=== PATIENT | female | born 1935 | race Hispanic/Latino ===

== ENCOUNTER 2018-07-18 15:25 | Observation (INO) | payer MEDICARE ==
[2018-07-18 15:26] VITALS: BMI 23.2
--- NOTE | 2018-07-18 16:03 | ED PDOC ---
HPI:STROKE - Time Time: 16:00 - Historian Historian: Family - Chief Complaint Chief Complaint: Mental status change, Confusion - Onset Date: 07/17/18 Time: 10:00 Onset: Days (1) - Timing Timing: Currently Symptomatic - Location Location: Mental Status - Radiation Radiation: None - Severity of pain Maximum severity:: Mild Severity Current: Mild - Exacerbated by Exacerbated by:: Nothing - Relieved by Relieved by:: Nothing - TPA Positive for Contraindication: No Reason tPA is not being Administered: Sxs 24 hrs - Notes: Notes:: Confusion, unstaedy gait since yesterday after waking up. Subsequently fell and hit back of head. No LOC. No focal weakness NIHSS Stroke Scale - How Severe is the Stroke Level of Consciousness: 0=Alert LOC to Questions: 0=Both comments correct LOC to commands: 0=Obeys both correctly Best Gaze: 0=Normal Visual: 0=No visual loss Facial: 0=Normal Motor Arm - Left: 0=No drift Motor Arm - Right: 0=No drift Motor Leg - Left: 0=No drift Motor Leg - Right: 0=No drift Limb Ataxia: 0=Absent Sensory: 0=Normal Best Language: 0=No aphasia Dysarthia: 0=Normal articulation Extinction & Inattention (Neglect): 0=Normal, no object Score: 0 rTPA Inclusion/Exclusion - Refusal of Treatment Patient Refused Treatment: No - Inclusion Criteria for Altepase Patient is 18 years or Older: Yes The Clinical Diagnosis of Ischemic Stroke That is Causing a Potentially Disabling Neurological Deficit: Yes Time of Onset is Well Established to be Less Than 270 Minute Before Treatment Would Begin: No Risk/Benefit Discussed With Patient/Family Member Present: No Past Medical History Vital Signs: Last Vital Signs Temp 99.9 F H 07/18/18 15:34 Pulse 65 07/18/18 15:34 Resp 16 07/18/18 15:34 BP 125/59 L 07/18/18 15:34 Pulse Ox 96 07/18/18 15:34 - Medical History PMH: CAD, HTN, Hypercholesterolemia, Hypothyroidism, Osteoporosis - Surgical History Surgical History: CABG - Family History Family History: States: Unknown Family Hx - Home Medications Home Medications: Ambulatory Orders Medication Instructions Recorded Enalapril Maleate [Enalapril] 10 mg PO DAILY 05/20/15 amLODIPine [Norvasc] 5 mg PO DAILY 05/20/15 Atorvastatin [Lipitor] 20 mg PO HS 01/29/18 Levothyroxine [Synthroid] 25 mcg PO DAILY 01/29/18 Sitagliptin Phos/Metformin HCl 1 tab PO BID 01/29/18 [Janumet 50-1,000 mg Tablet] Valsartan/Hydrochlorothiazide 1 tab PO DAILY 01/29/18 [Valsartan-Hctz 320-25 mg Tab] Aspirin [Aspirin] 325 mg PO DAILY 07/18/18 Ezetimibe [Zetia] 10 mg PO HS 07/18/18 Metoprolol Tartrate [Lopressor] 50 mg PO Q12 07/18/18 - Allergies Allergies/Adverse Reactions: Allergies Allergy/AdvReac Type Severity Reaction Status Date / Time No Known Allergies Allergy Verified 07/18/18 15:34 Review of Systems ROS Statement: Except As Marked, All Systems Reviewed And Found Negative Neurological: Positive for: Confusion, Other (Unstaedy gait) Physical Exam - Reviewed Nursing Documentation Reviewed: Yes Vital Signs Reviewed: Yes - Physical Exam Appears: Positive for: Non-toxic, No Acute Distress Head Exam: Positive for: ATRAUMATIC, NORMAL INSPECTION, NORMOCEPHALIC Skin: Positive for: Normal Color, Warm, DRY Eye Exam: Positive for: EOMI, Normal appearance, PERRL ENT: Positive for: Normal ENT Inspection Neck: Positive for: Normal, Painless ROM Cardiovascular/Chest: Positive for: Regular Rate, Rhythm, Murmur Respiratory: Positive for: CNT, Normal Breath Sounds Gastrointestinal/Abdominal: Positive for: Normal Exam, Soft Back: Positive for: Normal Inspection Extremity: Positive for: Normal ROM Neurologic/Psych: Positive for: Alert, Oriented (x2). Negative for: Motor/ Sensory Deficits - Laboratory Results Result Diagrams: 07/18/18 16:20 07/18/18 16:20 - ECG O2 Sat by Pulse Oximetry: 96 Disposition - Clinical Impression Clinical Impression: TIA (transient ischemic attack) - Patient ED Disposition Is Patient to be Admitted: Yes - Disposition Disposition Time: 17:44 Condition: FAIR Forms: [facility] (Moroccan) - Pt Status Changed To: Hospital Disposition Of: Observation - POA Present On Arrival: None
[2018-07-18 16:31] LABS: BASO % 0.2 % (0.0-2.0); EOS # 0.7 K/uL (0.0-0.7); HEMOGLOBIN 12.9 g/dL (12.0-16.0); LYMPH # 3.2 K/uL (1.0-4.3); LYMPH % 30.7 % (20.0-40.0); MEAN CELL VOLUME 93.5 fl (81.0-99.0); MEAN CORPUSCULAR HEMOGLOBIN 31.3 pg (27.0-31.0); MEAN CORPUSCULAR HGB CONC 33.5 g/dL (33.0-37.0); MEAN PLATELET VOLUME 9.2 fl (7.2-11.7); MONO # 0.9 K/uL (0.0-0.8); MONO % 8.3 % (0.0-10.0); NEUT # 5.6 K/uL (1.8-7.0); NEUT % 53.8 % (50.0-75.0); RBC 4.11 Mil/uL (3.80-5.20); RED CELL DISTRIBUTION WIDTH 13.5 % (11.5-14.5); WHITE BLOOD COUNT 10.4 K/uL (4.8-10.8)
--- NOTE | 2018-07-18 16:40 | CT ---
Date of service: 07/18/2018 PROCEDURE: CT HEAD WITHOUT CONTRAST. HISTORY: r/o bleed COMPARISON: 10/13/2013. TECHNIQUE: Axial computed tomography images were obtained through the head/brain without intravenous contrast. Radiation dose: Total exam DLP = 659.35 mGy-cm. This CT exam was performed using one or more of the following dose reduction techniques: Automated exposure control, adjustment of the mA and/or kV according to patient size, and/or use of iterative reconstruction technique. FINDINGS: HEMORRHAGE: No intracranial hemorrhage. 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 There are moderate chronic microangiopathic changes. There is no mass, mass effect or abnormal extra-axial fluid collection.There are coarse atherosclerotic calcifications in the cavernous carotid arteries. VENTRICLES: There is moderate age-related global parenchymal volume loss and proportionate enlargement of the ventricles and cortical sulci. CALVARIUM: There is no calvarial fracture or extracranial soft tissue swelling. PARANASAL SINUSES: There is abnormal soft tissue in the right sphenoid chamber and left maxillary sinus. The remaining included paranasal sinuses are predominantly clear. MASTOID AIR CELLS: Unremarkable as visualized. No inflammatory changes. OTHER FINDINGS: None. IMPRESSION: No acute intracranial abnormality. Moderate chronic microangiopathic changes and moderate age-related global parenchymal volume loss. 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
[2018-07-18 16:42] LABS: ALB/GLOB RATIO 1.2 (1.0-2.1); ALBUMIN 4.1 g/dL (3.5-5.0); ALT/SGPT 26 U/L (9-52); AST/SGOT 26 U/L (14-36); BLOOD UREA NITROGEN 17 mg/dl (7-17); CALCIUM 9.2 mg/dL (8.4-10.2); GFR NON-AFRICAN AMERICAN > 60
--- NOTE | 2018-07-18 17:09 | CP.PCM.HP ---
Addendum entered and electronically signed by Samantha Augustine MD 07/18/18 20:17: NIDDM -cont home meds -low correction dose -hypoglycemia protocol Original Note: <Samantha Augustine - Last Filed: 07/18/18 19:23> History of Present Illness - History of Present Illness History of Present Illness: CC: changes in mental status HPI: 83 YO Female with PMHx of NIDDM, HTN, HLD, CAD (s/p CABG) and baseline dementia was brought in to [facility] ED by daughter for changes in mental status and new onset weakness in RUE. Daughter present by bedside states that since yesterday AM, her mother was not at her usual self, was taking off her clothes, acting unlike herself and was having balance issues. Additionally, daughter noticed that pt was weak in her RUE, was unable to hold the phone or take her pills. Baseline RLE weakness due to chronic pain. Denies cough, dyspnea, chest pain, n/v/d/c, dysuria, hematuria. PMD: Dr. Gill PMHx: NIDDM, HTN, HLD, CAD (s/p CABG) and baseline dementia Surghx: s/p CABG SHx: denies ETOH, smoking and illicit drug use Allergies: NDKA Present on Admission - Present on Admission Any Indicators Present on Admission: No Review of Systems - Constitutional Constitutional: absent: Headache - EENT Eyes: absent: Blurred Vision, Change in Vision - Cardiovascular Cardiovascular: absent: Chest Pain, Dyspnea, Palpitations - Respiratory Respiratory: absent: Cough, Dyspnea - Gastrointestinal Gastrointestinal: absent: Abdominal Pain, Constipation, Diarrhea - Genitourinary Genitourinary: absent: Difficulty Urinating, Dysuria, Hematuria - Neurological Neurological: Focal Weakness (RUE), Memory Loss (baseline dementia ). absent: Dizziness Past Patient History - Past Social History Smoking Status: Never Smoked Alcohol: None Drugs: Denies - CARDIAC Hx Hypercholesterolemia: Yes Hx Hypertension: Yes - ENDOCRINE/METABOLIC Hx Hypothyroidism: Yes - MUSCULOSKELETAL/RHEUMATOLOGICAL Hx Osteoporosis: Yes - GASTROINTESTINAL Other/Comment: GERD - PSYCHIATRIC Hx Substance Use: No - SURGICAL HISTORY Hx Coronary Artery Bypass Graft: Yes - ANESTHESIA Hx Anesthesia: Yes Hx Anesthesia Reactions: No Hx Malignant Hyperthermia: No Meds Allergies/Adverse Reactions: Allergies Allergy/AdvReac Type Severity Reaction Status Date / Time No Known Allergies Allergy Verified 07/18/18 15:34 Physical Exam - Constitutional Appears: No Acute Distress - Head Exam Head Exam: NORMAL INSPECTION Additional comments: no speech difficulties noted or dysarthria - Eye Exam Eye Exam: Normal appearance - ENT Exam ENT Exam: Mucous Membranes Moist - Respiratory Exam Respiratory Exam: Clear to Auscultation Bilateral, NORMAL BREATHING PATTERN. absent: Wheezes - Cardiovascular Exam Cardiovascular Exam: REGULAR RHYTHM, +S1, +S2. absent: Systolic Murmur - GI/Abdominal Exam GI & Abdominal Exam: Normal Bowel Sounds, Soft. absent: Tenderness - Extremities Exam Extremities exam: Positive for: normal inspection, pedal edema (mild in the RLE , non-pitting). Negative for: calf tenderness - Back Exam Back exam: NORMAL INSPECTION - Neurological Exam Neurological exam: Alert, CN II-XII Intact, Normal Gait Additional comments: Awake and alert, oriented to name and place not to time. Strength same in the lower ext b/l Mild decrease in strength in the RUE as compared to LUE Sensory intact b/l Results - Vital Signs Recent Vital Signs: Last Vital Signs Temp 99.9 F H 07/18/18 15:34 Pulse 65 07/18/18 15:34 Resp 16 07/18/18 15:34 BP 125/59 L 07/18/18 15:34 Pulse Ox 96 07/18/18 16:05 - Labs Result Diagrams: 07/18/18 16:20 07/18/18 16:20 Labs: Laboratory Results - last 24 hr 07/18/18 07/18/18 16:20 16:20 WBC 10.4 RBC 4.11 Hgb 12.9 Hct 38.4 MCV 93.5 MCH 31.3 H MCHC 33.5 RDW 13.5 Plt Count 196 MPV 9.2 Neut % (Auto) 53.8 Lymph % (Auto) 30.7 [place] % (Auto) 8.3 Eos % (Auto) 7.0 H Baso % (Auto) 0.2 Neut # (Auto) 5.6 Lymph # (Auto) 3.2 [place] # (Auto) 0.9 H Eos # (Auto) 0.7 Baso # (Auto) 0.0 Sodium 137 Potassium 4.3 Chloride 104 Carbon Dioxide 22 Anion Gap 15 BUN 17 Creatinine 0.7 Est GFR ( Amer) > 60 Est GFR (Non-Af Amer) > 60 Random Glucose 117 H Calcium 9.2 Total Bilirubin 0.4 AST 26 ALT 26 Alkaline Phosphatase 43 Total Protein 7.7 Albumin 4.1 Globulin 3.5 Albumin/Globulin Ratio 1.2 - Imaging and Cardiology MRI - head Additional comment: IMPRESSION: 1. Right posterior temporoparietal 2 x 1.6 cm area of restricted diffusion suggestive of acute ischemia. 2. Involutional changes. Periventricular and subcortical abnormal T2 signal suggestive of chronic ischemic changes. 3. Left maxillary sinusitis. Assessment & Plan - Assessment and Plan (Free Text) Assessment: Assessment/Plan: 83 YO Female with PMHx of NIDDM, HTN, HLD, CAD (s/p CABG) and baseline dementia is admitted for TIA, r/o stroke. Stroke -new onset AMS with new unilateral weakness -MRI head: Right posterior temporoparietal 2 x 1.6 cm area of restricted diffusion suggestive of acute ischemia. -weakness improving, last baseline was over 24+hrs ago -consult neuro -PO asa 325mg today -EKG no acute ST changes old Inferior and lateral infract noted -carotid u/s and echo pending -blood work in AM, trops pending -NIHSS: 2 pts -neurochecks, PT/OT -swallow eval passed, start healthy diet HTH, CAD, HLD -s/p CABG -permissive HTN post stroke -will hold all BP meds for now -will increase atorvastatin Hypothyroidism -cont home med DVT pr -Lovenox SC <Eileen Matute - Last Filed: 07/19/18 07:08> Results - Vital Signs Recent Vital Signs: Last Vital Signs Temp 98.3 F 07/19/18 05:00 Pulse 65 07/19/18 05:00 Resp 18 07/19/18 05:00 BP 120/70 07/19/18 05:00 Pulse Ox 99 07/19/18 05:00 - Labs Result Diagrams: 07/18/18 16:20 07/19/18 05:00 Labs: Laboratory Results - last 24 hr 07/18/18 07/18/18 07/18/18 16:20 16:20 19:30 WBC 10.4 RBC 4.11 Hgb 12.9 Hct 38.4 MCV 93.5 MCH 31.3 H MCHC 33.5 RDW 13.5 Plt Count 196 MPV 9.2 Neut % (Auto) 53.8 Lymph % (Auto) 30.7 [place] % (Auto) 8.3 Eos % (Auto) 7.0 H Baso % (Auto) 0.2 Neut # (Auto) 5.6 Lymph # (Auto) 3.2 [place] # (Auto) 0.9 H Eos # (Auto) 0.7 Baso # (Auto) 0.0 Sodium 137 Potassium 4.3 Chloride 104 Carbon Dioxide 22 Anion Gap 15 BUN 17 Creatinine 0.7 Est GFR ( Amer) > 60 Est GFR (Non-Af Amer) > 60 Random Glucose 117 H Calcium 9.2 Total Bilirubin 0.4 AST 26 ALT 26 Alkaline Phosphatase 43 Troponin I Total Protein 7.7 Albumin 4.1 Globulin 3.5 Albumin/Globulin Ratio 1.2 Triglycerides 212 H Cholesterol 151 LDL Cholesterol Direct 74 HDL Cholesterol 37 TSH 3rd Generation 3.78 Urine Color Urine Appearance Urine pH Ur Specific [place] Urine Protein Urine Glucose (UA) Urine Ketones Urine Blood Urine Nitrate Urine Bilirubin Urine Urobilinogen Ur Leukocyte Esterase 07/18/18 07/18/18 07/18/18 20:00 22:00 23:59 WBC RBC Hgb Hct MCV MCH MCHC RDW Plt Count MPV Neut % (Auto) Lymph % (Auto) [place] % (Auto) Eos % (Auto) Baso % (Auto) Neut # (Auto) Lymph # (Auto) [place] # (Auto) Eos # (Auto) Baso # (Auto) Sodium Potassium Chloride Carbon Dioxide Anion Gap BUN Creatinine Est GFR ( Amer) Est GFR (Non-Af Amer) Random Glucose Calcium Total Bilirubin AST ALT Alkaline Phosphatase Troponin I < 0.0120 < 0.0120 Total Protein Albumin Globulin Albumin/Globulin Ratio Triglycerides Cholesterol LDL Cholesterol Direct HDL Cholesterol TSH 3rd Generation Urine Color Straw Urine Appearance Clear Urine pH 6.0 Ur Specific [place] 1.005 Urine Protein Negative Urine Glucose (UA) Neg Urine Ketones Negative Urine Blood Negative Urine Nitrate Negative Urine Bilirubin Negative Urine Urobilinogen 0.2 Ur Leukocyte Esterase Neg 07/19/18 05:00 WBC RBC Hgb Hct MCV MCH MCHC RDW Plt Count MPV Neut % (Auto) Lymph % (Auto) [place] % (Auto) Eos % (Auto) Baso % (Auto) Neut # (Auto) Lymph # (Auto) [place] # (Auto) Eos # (Auto) Baso # (Auto) Sodium 136 Potassium 4.2 Chloride 104 Carbon Dioxide 22 Anion Gap 14 BUN 17 Creatinine 0.6 L Est GFR ( Amer) > 60 Est GFR (Non-Af Amer) > 60 Random Glucose 150 H Calcium 9.0 Total Bilirubin 0.5 AST 26 ALT 30 Alkaline Phosphatase 45 Troponin I < 0.0120 Total Protein 6.8 Albumin 3.7 Globulin 3.1 Albumin/Globulin Ratio 1.2 Triglycerides Cholesterol LDL Cholesterol Direct HDL Cholesterol TSH 3rd Generation Urine Color Urine Appearance Urine pH Ur Specific [place] Urine Protein Urine Glucose (UA) Urine Ketones Urine Blood Urine Nitrate Urine Bilirubin Urine Urobilinogen Ur Leukocyte Esterase Attending/Attestation - Attestation I have personally seen and examined this patient.: Yes I have fully participated in the care of the patient.: Yes I have reviewed all pertinent clinical information: Yes Notes (Text): 07/19/18 07:07 seen examined discussed with resident dr augustine. agree with findings and pland as above
--- NOTE | 2018-07-18 18:19 | RAD ---
Date of service: 07/18/2018 HISTORY: cough COMPARISON: Chest radiograph dated 05/20/2015. FINDINGS: LUNGS: Medial left lower lobe scarring. No active pulmonary disease. PLEURA: No significant pleural effusion identified, no pneumothorax apparent. CARDIOVASCULAR: Prior sternotomy with sternal wires and surgical clips redemonstrated. Atherosclerotic aortic calcifications. Cardiomediastinal silhouette stably enlarged. OSSEOUS STRUCTURES: Old distal right clavicular fracture. Old right anterolateral 3rd rib fracture. Unchanged. VISUALIZED UPPER ABDOMEN: Normal. OTHER FINDINGS: None. IMPRESSION: Stable chronic prominence of the bilateral interstitial markings. Medial left lower lobe scarring. No focal consolidation or pleural effusion.
[2018-07-18] MEDS ORDERED: Glucagon Recombinant 1 mg Inj IM PRN (20:14)
[2018-07-18] MEDS ORDERED: Dextrose 50% SYRINGE Inj (50 ml) IV PRN (20:14)
[2018-07-18 20:36] LABS: URINE APPEARANCE CLEAR (CLEAR); URINE BILIRUBIN NEGATIVE (NEGATIVE); URINE BLOOD NEGATIVE (NEGATIVE); URINE COLOR STRAW (YELLOW); URINE GLUCOSE (UA) NEG (Normal); URINE PROTEIN NEGATIVE (NEGATIVE); URINE UROBILINOGEN 0.2 mg/dL (0.2-1.0)
[2018-07-18 20:37] LABS: URINE LEUKOCYTE ESTERASE NEG Leu/uL (Negative)
[2018-07-18] MEDS: Insulin Regular 100 units/ml SC SCH (22:30)
[2018-07-19] MEDS: Levothyroxine 25 MCG TAB PO SCH (05:32)
[2018-07-19 05:56] LABS: ALB/GLOB RATIO 1.2 (1.0-2.1); ALBUMIN 3.7 g/dL (3.5-5.0); ALT/SGPT 30 U/L (9-52); AST/SGOT 26 U/L (14-36); BLOOD UREA NITROGEN 17 mg/dl (7-17); GFR NON-AFRICAN AMERICAN > 60
[2018-07-19] MEDS: Insulin Regular 100 units/ml SC SCH ×4 (06:52→22:25)
[2018-07-19 07:13] LABS: T3 1.17 nmol/L (1.49-2.60)
[2018-07-19] MEDS: Enoxaparin 40 mg Syringe SC SCH (08:31)
--- NOTE | 2018-07-19 08:34 | CARD ---
APPROVED REPORT Date of service: 07/18/2018 <Conclusion> Sinus rhythm with 1st degree AV block Minimal voltage criteria for LVH, may be normal variant Inferior infarct, age undetermined Cannot rule out Anterior infarct, age undetermined T wave abnormality, consider lateral ischemia Abnormal ECG
[2018-07-19] MEDS ORDERED: Patient's Own Med (Sitagliptin Phos/Metformin Hcl [Janumet 50-1,000 Mg Tablet] 1 TAB) PO SCH (09:00)
--- NOTE | 2018-07-19 10:17 | CP.PCM.DIS ---
<Samantha Augustine - Last Filed: 07/19/18 13:18> Provider - Provider Date of Admission: 07/18/18 17:44 Attending physician: Eileen Matute DO Time Spent in preparation of Discharge (in minutes): 35 Diagnosis - Discharge Diagnosis (1) Stroke Status: Acute (2) CAD (coronary artery disease) of artery bypass graft Status: Chronic (3) HTN (hypertension) Status: Chronic (4) T2DM (type 2 diabetes mellitus) Status: Chronic Hospital Course - Lab Results Lab Results: Most Recent Lab Values WBC 10.4 K/uL (4.8-10.8) 07/18/18 16:20 RBC 4.11 Mil/uL (3.80-5.20) 07/18/18 16:20 Hgb 12.9 g/dL (12.0-16.0) 07/18/18 16:20 Hct 38.4 % (34.0-47.0) 07/18/18 16:20 MCV 93.5 fl (81.0-99.0) 07/18/18 16:20 MCH 31.3 pg (27.0-31.0) H 07/18/18 16:20 MCHC 33.5 g/dL (33.0-37.0) 07/18/18 16:20 RDW 13.5 % (11.5-14.5) 07/18/18 16:20 Plt Count 196 K/uL (130-400) 07/18/18 16:20 MPV 9.2 fl (7.2-11.7) 07/18/18 16:20 Neut % (Auto) 53.8 % (50.0-75.0) 07/18/18 16:20 Lymph % (Auto) 30.7 % (20.0-40.0) 07/18/18 16:20 [place] % (Auto) 8.3 % (0.0-10.0) 07/18/18 16:20 Eos % (Auto) 7.0 % (0.0-4.0) H 07/18/18 16:20 Baso % (Auto) 0.2 % (0.0-2.0) 07/18/18 16:20 Neut # (Auto) 5.6 K/uL (1.8-7.0) 07/18/18 16:20 Lymph # (Auto) 3.2 K/uL (1.0-4.3) 07/18/18 16:20 [place] # (Auto) 0.9 K/uL (0.0-0.8) H 07/18/18 16:20 Eos # (Auto) 0.7 K/uL (0.0-0.7) 07/18/18 16:20 Baso # (Auto) 0.0 K/uL (0.0-0.2) 07/18/18 16:20 Sodium 136 mmol/l (132-148) 07/19/18 05:00 Potassium 4.2 MMOL/L (3.6-5.0) 07/19/18 05:00 Chloride 104 mmol/L (98-107) 07/19/18 05:00 Carbon Dioxide 22 mmol/L (22-30) 07/19/18 05:00 Anion Gap 14 (10-20) 07/19/18 05:00 BUN 17 mg/dl (7-17) 07/19/18 05:00 Creatinine 0.6 mg/dl (0.7-1.2) L 07/19/18 05:00 Est GFR ( Amer) > 60 07/19/18 05:00 Est GFR (Non-Af Amer) > 60 07/19/18 05:00 POC Glucose (mg/dL) 163 mg/dL (65-110) H 07/19/18 05:18 Random Glucose 150 mg/dL (65-105) H 07/19/18 05:00 Hemoglobin A1c 7.8 % (4.2-6.5) H 07/19/18 05:42 Calcium 9.0 mg/dL (8.4-10.2) 07/19/18 05:00 Total Bilirubin 0.5 mg/dl (0.2-1.3) 07/19/18 05:00 AST 26 U/L (14-36) 07/19/18 05:00 ALT 30 U/L (9-52) 07/19/18 05:00 Alkaline Phosphatase 45 U/L (38-126) 07/19/18 05:00 Troponin I < 0.0120 ng/mL (0.00-0.120) 07/19/18 05:00 Total Protein 6.8 G/DL (6.3-8.2) 07/19/18 05:00 Albumin 3.7 g/dL (3.5-5.0) 07/19/18 05:00 Globulin 3.1 gm/dL (2.2-3.9) 07/19/18 05:00 Albumin/Globulin Ratio 1.2 (1.0-2.1) 07/19/18 05:00 Triglycerides 212 mg/DL (0-149) H 07/18/18 19:30 Cholesterol 151 mg/dL (0-199) 07/18/18 19:30 LDL Cholesterol Direct 74 mg/dL (0-129) 07/18/18 19:30 HDL Cholesterol 37 MG/DL (30-70) 07/18/18 19:30 Total T3 1.17 nmol/L (1.49-2.60) L 07/19/18 05:42 TSH 3rd Generation 3.70 mIU/ML (0.46-4.68) 07/19/18 05:42 Urine Color Straw (YELLOW) 07/18/18 20:00 Urine Appearance Clear (CLEAR) 07/18/18 20:00 Urine pH 6.0 (5.0-8.0) 07/18/18 20:00 Ur Specific [place] 1.005 (1.003-1.030) 07/18/18 20:00 Urine Protein Negative mg/dL (NEGATIVE) 07/18/18 20:00 Urine Glucose (UA) Neg mg/dL (Normal) 07/18/18 20:00 Urine Ketones Negative mg/dL (NEGATIVE) 07/18/18 20:00 Urine Blood Negative (NEGATIVE) 07/18/18 20:00 Urine Nitrate Negative (NEGATIVE) 07/18/18 20:00 Urine Bilirubin Negative (NEGATIVE) 07/18/18 20:00 Urine Urobilinogen 0.2 mg/dL (0.2-1.0) 07/18/18 20:00 Ur Leukocyte Esterase Neg Felicia/uL (Negative) 07/18/18 20:00 - Hospital Course Hospital Course: 83 YO Female with PMHx of NIDDM, HTN, HLD, CAD (s/p CABG) and baseline dementia is admitted for TIA, r/o stroke. MRI was sig for right posterior temporoparietal area suggestive of acute ischemia. Patient is improving and per daughter mental status is back to baseline. Pt was seen by PT/OT, neurology was consulted pt given plavix, started on daily plavix, Atorvastatin increased to 40mg and ASA 81mg daily. Will d/c pt home with outpatient PT x 6 weeks. Follow up echo and carotid u/s as outpatient. Discharge Exam - Head Exam Head Exam: NORMAL INSPECTION - Eye Exam Eye Exam: Normal appearance - ENT Exam ENT Exam: Mucous Membranes Moist - Respiratory Exam Respiratory Exam: Clear to PA & Lateral, NORMAL BREATHING PATTERN. absent: Wheezes - Cardiovascular Exam Cardiovascular Exam: REGULAR RHYTHM, +S1, +S2 - GI/Abdominal Exam GI & Abdominal Exam: Normal Bowel Sounds, Soft. absent: Tenderness - Extremities Exam Extremities exam: normal inspection, pedal edema (mild in the RLE, chronic ) - Neurological Exam Neurological exam: Alert (more alert today ), CN II-XII Intact Additional comments: Oriented to name and place, more alert today RUE weakness persists, mild improvement - Psychiatric Exam Psychiatric exam: Normal Mood Discharge Plan - Discharge Medications Prescriptions: Aspirin [Aspirin Chewable] 81 mg PO DAILY #30 chew Atorvastatin [Lipitor] 40 mg PO HS #30 tab Clopidogrel [Plavix] 75 mg PO DAILY #30 tab - Follow Up Plan Condition: FAIR Disposition: HOME/ ROUTINE Instructions: Stroke (DC) Additional Instructions: please follow up with MD within 1 week <Eileen Matute - Last Filed: 07/19/18 18:16> Provider - Provider Date of Admission: 07/18/18 17:44 Attending physician: Eileen Matute DO Hospital Course - Lab Results Lab Results: Most Recent Lab Values WBC 10.4 K/uL (4.8-10.8) 07/18/18 16:20 RBC 4.11 Mil/uL (3.80-5.20) 07/18/18 16:20 Hgb 12.9 g/dL (12.0-16.0) 07/18/18 16:20 Hct 38.4 % (34.0-47.0) 07/18/18 16:20 MCV 93.5 fl (81.0-99.0) 07/18/18 16:20 MCH 31.3 pg (27.0-31.0) H 07/18/18 16:20 MCHC 33.5 g/dL (33.0-37.0) 07/18/18 16:20 RDW 13.5 % (11.5-14.5) 07/18/18 16:20 Plt Count 196 K/uL (130-400) 07/18/18 16:20 MPV 9.2 fl (7.2-11.7) 07/18/18 16:20 Neut % (Auto) 53.8 % (50.0-75.0) 07/18/18 16:20 Lymph % (Auto) 30.7 % (20.0-40.0) 07/18/18 16:20 [place] % (Auto) 8.3 % (0.0-10.0) 07/18/18 16:20 Eos % (Auto) 7.0 % (0.0-4.0) H 07/18/18 16:20 Baso % (Auto) 0.2 % (0.0-2.0) 07/18/18 16:20 Neut # (Auto) 5.6 K/uL (1.8-7.0) 07/18/18 16:20 Lymph # (Auto) 3.2 K/uL (1.0-4.3) 07/18/18 16:20 [place] # (Auto) 0.9 K/uL (0.0-0.8) H 07/18/18 16:20 Eos # (Auto) 0.7 K/uL (0.0-0.7) 07/18/18 16:20 Baso # (Auto) 0.0 K/uL (0.0-0.2) 07/18/18 16:20 Sodium 136 mmol/l (132-148) 07/19/18 05:00 Potassium 4.2 MMOL/L (3.6-5.0) 07/19/18 05:00 Chloride 104 mmol/L (98-107) 07/19/18 05:00 Carbon Dioxide 22 mmol/L (22-30) 07/19/18 05:00 Anion Gap 14 (10-20) 07/19/18 05:00 BUN 17 mg/dl (7-17) 07/19/18 05:00 Creatinine 0.6 mg/dl (0.7-1.2) L 07/19/18 05:00 Est GFR ( Amer) > 60 07/19/18 05:00 Est GFR (Non-Af Amer) > 60 07/19/18 05:00 POC Glucose (mg/dL) 233 mg/dL (65-110) H 07/19/18 11:13 Random Glucose 150 mg/dL (65-105) H 07/19/18 05:00 Hemoglobin A1c 7.8 % (4.2-6.5) H 07/19/18 05:42 Calcium 9.0 mg/dL (8.4-10.2) 07/19/18 05:00 Total Bilirubin 0.5 mg/dl (0.2-1.3) 07/19/18 05:00 AST 26 U/L (14-36) 07/19/18 05:00 ALT 30 U/L (9-52) 07/19/18 05:00 Alkaline Phosphatase 45 U/L (38-126) 07/19/18 05:00 Troponin I < 0.0120 ng/mL (0.00-0.120) 07/19/18 05:00 Total Protein 6.8 G/DL (6.3-8.2) 07/19/18 05:00 Albumin 3.7 g/dL (3.5-5.0) 07/19/18 05:00 Globulin 3.1 gm/dL (2.2-3.9) 07/19/18 05:00 Albumin/Globulin Ratio 1.2 (1.0-2.1) 07/19/18 05:00 Triglycerides 212 mg/DL (0-149) H 07/18/18 19:30 Cholesterol 151 mg/dL (0-199) 07/18/18 19:30 LDL Cholesterol Direct 74 mg/dL (0-129) 07/18/18 19:30 HDL Cholesterol 37 MG/DL (30-70) 07/18/18 19:30 Total T3 1.17 nmol/L (1.49-2.60) L 07/19/18 05:42 TSH 3rd Generation 3.70 mIU/ML (0.46-4.68) 07/19/18 05:42 Urine Color Straw (YELLOW) 07/18/18 20:00 Urine Appearance Clear (CLEAR) 07/18/18 20:00 Urine pH 6.0 (5.0-8.0) 07/18/18 20:00 Ur Specific [place] 1.005 (1.003-1.030) 07/18/18 20:00 Urine Protein Negative mg/dL (NEGATIVE) 07/18/18 20:00 Urine Glucose (UA) Neg mg/dL (Normal) 07/18/18 20:00 Urine Ketones Negative mg/dL (NEGATIVE) 07/18/18 20:00 Urine Blood Negative (NEGATIVE) 07/18/18 20:00 Urine Nitrate Negative (NEGATIVE) 07/18/18 20:00 Urine Bilirubin Negative (NEGATIVE) 07/18/18 20:00 Urine Urobilinogen 0.2 mg/dL (0.2-1.0) 07/18/18 20:00 Ur Leukocyte Esterase Neg Felicia/uL (Negative) 07/18/18 20:00
--- NOTE | 2018-07-19 12:46 | MRI ---
Date of service: 07/18/2018 PROCEDURE: MRI BRAIN WITHOUT CONTRAST HISTORY: CVA COMPARISON: Comparison made with prior CT scan of the brain obtained earlier same day TECHNIQUE: Multiplanar, multisequence MR images of the brain were obtained without intravenous contrast enhancement. FINDINGS: HEMORRHAGE: No acute parenchymal, subarachnoid or extra-axial hemorrhage. DWI: There are acute infarct changes seen in the right posterior parietal operculum region bordering the posterior margin of the sylvian fissure extending superiorly into the right parietal cortex and deeper white matter. BRAIN PARENCHYMA: Moderate to fairly significant diffuse and confluent chronic periventricular white matter ischemic changes seen extending peripherally into the deep and subcortical white matter both cerebral hemispheres lacunar type infarcts seen scattered about the deep and subcortical white matter both cerebral hemispheres including centrum semiovale and vidal radiata. There also multiple chronic bilateral basal nuclei lacunar type infarcts. No obvious parenchymal nor extra-axial mass or collection seen on this noncontrast exam Moderate generalized volume loss. VENTRICLES: No obstructive hydrocephalus. CRANIUM: Calvarium unremarkable and unchanged from prior study ORBITS: No obstructive orbits and contents unremarkable. PARANASAL SINUSES/MASTOIDS: There subtotal opacification of the left maxillary antrum and complete opacification right chamber of the sphenoid sinus. Minor mucosal thickening noted within a few ethmoid air cells. VASCULAR SYSTEM: Visualized major vascular flow voids at skull base patent. OTHER FINDINGS: Questionable tiny Tornwaldt cysts IMPRESSION: Acute infarct changes involving the right parietal operculum bordering the posterior margin of the sylvian fissure extending superiorly into the cortical and deep white matter of the right parietal lobe. Moderate to significant chronic white matter and basal nuclei ischemic changes. Moderate to significant generalized volume loss. No acute intracranial hemorrhage. Preliminary report provided by overnight radiology service
--- NOTE | 2018-07-19 13:38 | CP.PCM.CON ---
History of Present Illness - History of Present Illness History of Present Illness: Neurology Consultation Note: Mrs. Landis is an 83-year-old woman with a known past medical history of DM, HTN, HLD, CAD (s/p CABG) and baseline dementia was brought to the ED by her daughter after she noticed changes in her mental function and evidence of right arm weakness. The patient was confused and taking off her clothes and having difficulty using her right arm. She has chronic right lower extremity weakness due to pain. MRI was done and showed a right parietal lobe infarct. Review of Systems - Review of Systems All systems: reviewed and no additional remarkable complaints except Past Patient History - Past Medical History & Family History Past Medical History?: Yes - Past Social History Smoking Status: Never Smoked - CARDIAC Hx Hypertension: Yes - ENDOCRINE/METABOLIC Hx Endocrine Disorders: Yes - MUSCULOSKELETAL/RHEUMATOLOGICAL Hx Falls: Yes - GASTROINTESTINAL Hx Gastroesophageal Reflux: Yes - PSYCHIATRIC Hx Substance Use: No - SURGICAL HISTORY Hx Coronary Artery Bypass Graft: Yes - ANESTHESIA Hx Anesthesia: Yes Hx Anesthesia Reactions: No Hx Malignant Hyperthermia: No Meds Home Medications: Home Medication List Medication Instructions Recorded Confirmed Type Aspirin [Aspirin Chewable] 81 mg PO DAILY #30 chew 07/19/18 Rx Atorvastatin [Lipitor] 40 mg PO HS #30 tab 07/19/18 Rx Clopidogrel [Plavix] 75 mg PO DAILY #30 tab 07/19/18 Rx Allergies/Adverse Reactions: Allergies Allergy/AdvReac Type Severity Reaction Status Date / Time No Known Allergies Allergy Verified 07/18/18 15:34 - Medications Medications: Current Medications Amlodipine Besylate (Norvasc) 5 mg PO DAILY [facility] Aspirin (Aspirin Chewable) 81 mg PO DAILY [facility] Last Admin: 07/19/18 08:29 Dose: 81 mg Atorvastatin Calcium (Lipitor) 40 mg PO HS [facility] Last Admin: 07/18/18 23:41 Dose: 40 mg Clopidogrel Bisulfate (Plavix) 75 mg PO DAILY [facility] Last Admin: 07/19/18 08:30 Dose: 75 mg Dextrose (Dextrose 50% Inj) 0 ml IV STAT PRN; Protocol PRN Reason: Hypoglycemia Protocol Dextrose (Glutose 15) 0 gm PO ONCE PRN; Protocol PRN Reason: Hypoglycemia Protocol Ezetimibe (Zetia) 10 mg PO HS [facility] Last Admin: 07/18/18 23:41 Dose: 10 mg Enalapril Maleate (Vasotec) 10 mg PO DAILY [facility] Enoxaparin Sodium (Lovenox) 40 mg SC DAILY [facility] PRN Reason: Protocol Last Admin: 07/19/18 08:31 Dose: 40 mg Glucagon (Glucagen Diagnostic Kit) 0 mg IM STAT PRN; Protocol PRN Reason: Hypoglycemia Protocol Hydrochlorothiazide (Hydrodiuril) 25 mg PO DAILY [facility] Insulin Human Regular (Humulin R) 0 units SC [facility] PRN Reason: Protocol Last Admin: 07/19/18 06:52 Dose: Not Given Levothyroxine Sodium (Synthroid) 25 mcg PO DAILY@0630 [facility] Last Admin: 07/19/18 05:32 Dose: 25 mcg Metformin HCl (Glucophage) 1,000 mg PO Q12 [facility] Metoprolol Tartrate (Lopressor) 50 mg PO Q12 [facility] Sitagliptin Phosphate (Januvia) 50 mg PO Q12 [facility] Last Admin: 07/19/18 08:29 Dose: 50 mg Physical Exam - Neurological Exam Neurological exam: Alert, CN II-XII Intact, Normal Gait, Oriented x3, Reflexes Normal Additional comments: NIHSS was 0 Results - Vital Signs Recent Vital Signs: Last Vital Signs Temp 97.5 F L 07/19/18 12:00 Pulse 71 07/19/18 12:00 Resp 20 07/19/18 12:00 BP 140/73 07/19/18 12:00 Pulse Ox 98 07/19/18 12:00 - Labs Result Diagrams: 07/18/18 16:20 07/19/18 05:00 Labs: Laboratory Results - last 24 hr 07/18/18 07/18/18 07/18/18 16:20 16:20 19:30 WBC 10.4 RBC 4.11 Hgb 12.9 Hct 38.4 MCV 93.5 MCH 31.3 H MCHC 33.5 RDW 13.5 Plt Count 196 MPV 9.2 Neut % (Auto) 53.8 Lymph % (Auto) 30.7 [place] % (Auto) 8.3 Eos % (Auto) 7.0 H Baso % (Auto) 0.2 Neut # (Auto) 5.6 Lymph # (Auto) 3.2 [place] # (Auto) 0.9 H Eos # (Auto) 0.7 Baso # (Auto) 0.0 Sodium 137 Potassium 4.3 Chloride 104 Carbon Dioxide 22 Anion Gap 15 BUN 17 Creatinine 0.7 Est GFR ( Amer) > 60 Est GFR (Non-Af Amer) > 60 POC Glucose (mg/dL) Random Glucose 117 H Hemoglobin A1c Calcium 9.2 Total Bilirubin 0.4 AST 26 ALT 26 Alkaline Phosphatase 43 Troponin I Total Protein 7.7 Albumin 4.1 Globulin 3.5 Albumin/Globulin Ratio 1.2 Triglycerides 212 H Cholesterol 151 LDL Cholesterol Direct 74 HDL Cholesterol 37 Total T3 TSH 3rd Generation 3.78 Urine Color Urine Appearance Urine pH Ur Specific [place] Urine Protein Urine Glucose (UA) Urine Ketones Urine Blood Urine Nitrate Urine Bilirubin Urine Urobilinogen Ur Leukocyte Esterase 07/18/18 07/18/18 07/18/18 20:00 22:00 22:41 WBC RBC Hgb Hct MCV MCH MCHC RDW Plt Count MPV Neut % (Auto) Lymph % (Auto) [place] % (Auto) Eos % (Auto) Baso % (Auto) Neut # (Auto) Lymph # (Auto) [place] # (Auto) Eos # (Auto) Baso # (Auto) Sodium Potassium Chloride Carbon Dioxide Anion Gap BUN Creatinine Est GFR ( Amer) Est GFR (Non-Af Amer) POC Glucose (mg/dL) 155 H Random Glucose Hemoglobin A1c Calcium Total Bilirubin AST ALT Alkaline Phosphatase Troponin I < 0.0120 Total Protein Albumin Globulin Albumin/Globulin Ratio Triglycerides Cholesterol LDL Cholesterol Direct HDL Cholesterol Total T3 TSH 3rd Generation Urine Color Straw Urine Appearance Clear Urine pH 6.0 Ur Specific [place] 1.005 Urine Protein Negative Urine Glucose (UA) Neg Urine Ketones Negative Urine Blood Negative Urine Nitrate Negative Urine Bilirubin Negative Urine Urobilinogen 0.2 Ur Leukocyte Esterase Neg 07/18/18 07/19/18 07/19/18 23:59 05:00 05:18 WBC RBC Hgb Hct MCV MCH MCHC RDW Plt Count MPV Neut % (Auto) Lymph % (Auto) [place] % (Auto) Eos % (Auto) Baso % (Auto) Neut # (Auto) Lymph # (Auto) [place] # (Auto) Eos # (Auto) Baso # (Auto) Sodium 136 Potassium 4.2 Chloride 104 Carbon Dioxide 22 Anion Gap 14 BUN 17 Creatinine 0.6 L Est GFR ( Amer) > 60 Est GFR (Non-Af Amer) > 60 POC Glucose (mg/dL) 163 H Random Glucose 150 H Hemoglobin A1c Calcium 9.0 Total Bilirubin 0.5 AST 26 ALT 30 Alkaline Phosphatase 45 Troponin I < 0.0120 < 0.0120 Total Protein 6.8 Albumin 3.7 Globulin 3.1 Albumin/Globulin Ratio 1.2 Triglycerides Cholesterol LDL Cholesterol Direct HDL Cholesterol Total T3 TSH 3rd Generation Urine Color Urine Appearance Urine pH Ur Specific [place] Urine Protein Urine Glucose (UA) Urine Ketones Urine Blood Urine Nitrate Urine Bilirubin Urine Urobilinogen Ur Leukocyte Esterase 07/19/18 07/19/18 07/19/18 05:42 05:42 11:13 WBC RBC Hgb Hct MCV MCH MCHC RDW Plt Count MPV Neut % (Auto) Lymph % (Auto) [place] % (Auto) Eos % (Auto) Baso % (Auto) Neut # (Auto) Lymph # (Auto) [place] # (Auto) Eos # (Auto) Baso # (Auto) Sodium Potassium Chloride Carbon Dioxide Anion Gap BUN Creatinine Est GFR ( Amer) Est GFR (Non-Af Amer) POC Glucose (mg/dL) 233 H Random Glucose Hemoglobin A1c 7.8 H Calcium Total Bilirubin AST ALT Alkaline Phosphatase Troponin I Total Protein Albumin Globulin Albumin/Globulin Ratio Triglycerides Cholesterol LDL Cholesterol Direct HDL Cholesterol Total T3 1.17 L TSH 3rd Generation 3.70 Urine Color Urine Appearance Urine pH Ur Specific [place] Urine Protein Urine Glucose (UA) Urine Ketones Urine Blood Urine Nitrate Urine Bilirubin Urine Urobilinogen Ur Leukocyte Esterase Assessment & Plan (1) Stroke Assessment and Plan: The patient's source of stroke should be evaluated for. I recommend the followin. CTA of the head/neck 2. Telemetry 3. Aspirin 81 mg daily and Plavix 75 mg daily for 21 days per the chance trial. 4. Lipitor 40 mg daily 5. PT/OT eval and treatment if needed 6. Permissive HTN for the next 24 hours (only treat BP that is higher than 220/ 110 mm Hg) 7. Case management consult 8. Follow up with outpatient neurology Thank you. Status: Acute Priority: High
--- NOTE | 2018-07-19 17:07 | CP.PCM.PN ---
<Samantha Augustine - Last Filed: 07/19/18 17:14> Subjective - Date & Time of Evaluation Date of Evaluation: 07/19/18 Time of Evaluation: 08:30 - Subjective Subjective: No acute overnight events. Daughter present by bedside. States that mental status has improved since yesterday. Denies chest pain, dyspnea, n/v/d/c. Objective - Vital Signs/Intake and Output Vital Signs (last 24 hours): Temp Pulse Resp BP Pulse Ox 97.4 F L 71 20 164/90 H 93 L 07/19/18 16:03 07/19/18 16:03 07/19/18 16:03 07/19/18 16:03 07/19/18 16:03 - Medications Medications: Current Medications Amlodipine Besylate (Norvasc) 5 mg PO DAILY [facility] Aspirin (Aspirin Chewable) 81 mg PO DAILY [facility] Last Admin: 07/19/18 08:29 Dose: 81 mg Atorvastatin Calcium (Lipitor) 40 mg PO HS [facility] Last Admin: 07/18/18 23:41 Dose: 40 mg Clopidogrel Bisulfate (Plavix) 75 mg PO DAILY [facility] Last Admin: 07/19/18 08:30 Dose: 75 mg Dextrose (Dextrose 50% Inj) 0 ml IV STAT PRN; Protocol PRN Reason: Hypoglycemia Protocol Dextrose (Glutose 15) 0 gm PO ONCE PRN; Protocol PRN Reason: Hypoglycemia Protocol Ezetimibe (Zetia) 10 mg PO HS [facility] Last Admin: 07/18/18 23:41 Dose: 10 mg Enalapril Maleate (Vasotec) 10 mg PO DAILY [facility] Enoxaparin Sodium (Lovenox) 40 mg SC DAILY [facility] PRN Reason: Protocol Last Admin: 07/19/18 08:31 Dose: 40 mg Glucagon (Glucagen Diagnostic Kit) 0 mg IM STAT PRN; Protocol PRN Reason: Hypoglycemia Protocol Hydrochlorothiazide (Hydrodiuril) 25 mg PO DAILY [facility] Insulin Human Regular (Humulin R) 0 units SC [facility] PRN Reason: Protocol Last Admin: 07/19/18 16:54 Dose: Not Given Levothyroxine Sodium (Synthroid) 25 mcg PO DAILY@0630 [facility] Last Admin: 07/19/18 05:32 Dose: 25 mcg Metformin HCl (Glucophage) 1,000 mg PO Q12 [facility] Metoprolol Tartrate (Lopressor) 50 mg PO Q12 [facility] Sitagliptin Phosphate (Januvia) 50 mg PO Q12 [facility] Last Admin: 07/19/18 08:29 Dose: 50 mg - Labs Labs: 07/18/18 16:20 07/19/18 05:00 - Constitutional Appears: No Acute Distress - Head Exam Additional comments: facial symmetry - Eye Exam Eye Exam: Normal appearance - Respiratory Exam Respiratory Exam: Clear to Ausculation Bilateral, NORMAL BREATHING PATTERN. absent: Wheezes - Cardiovascular Exam Cardiovascular Exam: REGULAR RHYTHM, +S1 - GI/Abdominal Exam GI & Abdominal Exam: Soft, Normal Bowel Sounds. absent: Tenderness - Extremities Exam Extremities Exam: Normal Inspection, Pedal Edema (mild RLE edema, non-pitting). absent: Calf Tenderness Additional comments: RUE weakness noted when compared to LUE - Neurological Exam Neurological Exam: Alert, Awake, CN II-XII Intact - Psychiatric Exam Psychiatric exam: Normal Mood Assessment and Plan (1) Stroke Status: Acute (2) CAD (coronary artery disease) of artery bypass graft Status: Chronic (3) HTN (hypertension) Status: Chronic (4) T2DM (type 2 diabetes mellitus) Status: Chronic - Assessment and Plan (Free Text) Assessment: Assessment/Plan: 83 YO Female with PMHx of NIDDM, HTN, HLD, CAD (s/p CABG) and baseline dementia is admitted for TIA, r/o stroke. MRI was sig for right posterior temporoparietal area suggestive of acute ischemia. Patient is improving and per daughter mental status is back to baseline. Discharge was d/c, pending CTA head and neck per neurology. Stroke -new onset AMS with new unilateral weakness -MRI head: Right posterior temporoparietal 2 x 1.6 cm area of restricted diffusion suggestive of acute ischemia. -NIHSS: 2 pts on admission -weakness improving, last baseline was over 24+hrs ago -consult neuro: plavix administered, started daily plavix -EKG no acute ST changes old Inferior and lateral infract noted, trops neg -carotid u/s and echo pending -Pt was seen by PT/OT recommended outpatient rehab -swallow eval passed -pt pending CTA head and heck per neuro HTH, CAD, HLD -s/p CABG -permissive HTN post stroke -will hold all BP meds for now -will increase atorvastatin Hypothyroidism -cont home med DVT pr -Lovenox SC <Eileen Matute - Last Filed: 07/19/18 18:19> Objective - Vital Signs/Intake and Output Vital Signs (last 24 hours): Temp Pulse Resp BP Pulse Ox 97.4 F L 71 20 164/90 H 93 L 07/19/18 16:03 07/19/18 16:03 07/19/18 16:03 07/19/18 16:03 07/19/18 16:03 - Medications Medications: Current Medications Amlodipine Besylate (Norvasc) 5 mg PO DAILY [facility] Aspirin (Aspirin Chewable) 81 mg PO DAILY [facility] Last Admin: 07/19/18 08:29 Dose: 81 mg Atorvastatin Calcium (Lipitor) 40 mg PO HS [facility] Last Admin: 07/18/18 23:41 Dose: 40 mg Clopidogrel Bisulfate (Plavix) 75 mg PO DAILY [facility] Last Admin: 07/19/18 08:30 Dose: 75 mg Dextrose (Dextrose 50% Inj) 0 ml IV STAT PRN; Protocol PRN Reason: Hypoglycemia Protocol Dextrose (Glutose 15) 0 gm PO ONCE PRN; Protocol PRN Reason: Hypoglycemia Protocol Ezetimibe (Zetia) 10 mg PO HS [facility] Last Admin: 07/18/18 23:41 Dose: 10 mg Enalapril Maleate (Vasotec) 10 mg PO DAILY [facility] Enoxaparin Sodium (Lovenox) 40 mg SC DAILY [facility] PRN Reason: Protocol Last Admin: 07/19/18 08:31 Dose: 40 mg Glucagon (Glucagen Diagnostic Kit) 0 mg IM STAT PRN; Protocol PRN Reason: Hypoglycemia Protocol Hydrochlorothiazide (Hydrodiuril) 25 mg PO DAILY [facility] Insulin Human Regular (Humulin R) 0 units SC [facility] PRN Reason: Protocol Last Admin: 07/19/18 16:54 Dose: Not Given Levothyroxine Sodium (Synthroid) 25 mcg PO DAILY@0630 [facility] Last Admin: 07/19/18 05:32 Dose: 25 mcg Metformin HCl (Glucophage) 1,000 mg PO Q12 [facility] Metoprolol Tartrate (Lopressor) 50 mg PO Q12 [facility] Sitagliptin Phosphate (Januvia) 50 mg PO Q12 [facility] Last Admin: 07/19/18 08:29 Dose: 50 mg - Labs Labs: 07/18/18 16:20 07/19/18 05:00 Attending/Attestation - Attestation I have personally seen and examined this patient.: Yes I have fully participated in the care of the patient.: Yes I have reviewed all pertinent clinical information, including history, physical exam and plan: Yes Notes (Text): 07/19/18 18:19 Seen, examined, and discussed with residents Drs. Escalera and Davide. Agree with findings and plan as above.
--- NOTE | 2018-07-19 17:53 | CARD ---
APPROVED REPORT Date of service: 07/19/2018 EXAM: Two-dimensional and M-mode echocardiogram with Doppler and color Doppler. Other Information Quality : FairRhythm : NSR INDICATION CVA/TIA Surgery/Intervention CABD DIMENSIONS IVSd1.05 (0.7-1.1cm)LVDd4.17 (3.9-5.9cm) LVOT Diameter2.27 (1.8-2.4cm)PWd0.50 (0.7-1.1cm) IVSs1.02 (0.8-1.2cm)LVDs3.11 (2.5-4.0cm) FS (%) 25.4 %PWs0.95 (0.8-1.2cm) M-Mode DIMENSIONS Left Atrium (MM)4.68 (2.5-4.0cm)IVSd0.90 (0.7-1.1cm) Aortic Root2.83 (2.2-3.7cm)LVDd5.56 (4.0-5.6cm) Aortic Cusp Exc.1.49 (1.5-2.0cm)PWd1.00 (0.7-1.1cm) IVSs1.29 cmFS (%) 33 % LVDs3.73 (2.0-3.8cm)PWs0.77 cm Aortic Valve AoV Peak Ymoubism368.4cm/sAoV VTI36.5cmAO Peak GR.17mmHg LVOT Peak Pptfhpsj351.2cm/sLVOT VTI19.86cmAO Mean GR.9mmHg MELONIE (VTI)1.44cm2 Mitral Valve MV E Cutjijed78.1cm/sMV DECEL [id number] A Upkxqcvs55.8cm/s MV ZDW22gpN/A ratio0.6MVA (PHT)2.35cm2 TDI Lateral E' Peak V11.41cm/sMedial E' Peak V3.75cm/sE/Lateral E'4.5 E/Medial E'13.6 LEFT VENTRICLE The left ventricle is normal size. There is normal left ventricular wall thickness. The left ventricular systolic function is normal. The estimated ejection fraction is 55-60% No regional wall motion abnormalities noted.. Transmitral Doppler flow pattern is Grade I-abnormal relaxation pattern. No left ventricle thrombus noted on this study. There is no ventricular septal defect visualized. There is no mass noted in the left ventricle. RIGHT VENTRICLE The right ventricle is normal size. There is normal right ventricular wall thickness. The right ventricular systolic function is normal. ATRIA The left atrium size is moderately dilated The right atrium size is normal. The interatrial septum is intact with no evidence for an atrial septal defect. AORTIC VALVE The aortic valve is normal in structure. Mild sclerosis No aortic regurgitation is present. There is mild aortic valvular stenosis by gradients MITRAL VALVE The mitral valve is normal in structure. There is no mitral valve stenosis. There is trivial to mild mitral valve regurgitation noted. TRICUSPID VALVE The tricuspid valve is normal in structure. There is no tricuspid valve regurgitation noted. PULMONIC VALVE The pulmonary valve is normal in structure. There is no pulmonic valvular regurgitation. GREAT VESSELS The aortic root is normal in size. The ascending aorta is normal in size. The pulmonary artery is normal. The IVC is normal in size and collapses >50% with inspiration. PERICARDIAL EFFUSION There is no pericardial effusion. <Conclusion> Trivial to mild mitral insufficiency Mild aortic stenosis The left ventricular systolic function is normal, with doppler hemodynamics consistent with abnormal relaxation The estimated ejection fraction is 55-60%
[2018-07-19] MEDS ORDERED: Sodium Chloride 0.9% 50 ML IV ONE (18:25)
[2018-07-19] MEDS ORDERED: Iodixanol 320 MG/ML 100 ML BOTTLE IV ONE (18:25)
[2018-07-20] MEDS: Levothyroxine 25 MCG TAB PO SCH (05:37)
[2018-07-20 06:04] LABS: BLOOD UREA NITROGEN 17 mg/dl (7-17); CALCIUM 9.2 mg/dL (8.4-10.2); GFR NON-AFRICAN AMERICAN > 60
--- NOTE | 2018-07-20 07:31 | CT ---
Date of service: 07/19/2018 PROCEDURE: CT Angiography of the Brain. HISTORY: ischemic stroke COMPARISON: None available. TECHNIQUE: CT angiography of the intracranial arteries was performed. Coronal and sagittal maximum intensity projection reformated images were generated. This CT exam was performed using one or more of the following dose reduction techniques: Automated exposure control, adjustment of the mA and/or kV according to patient size, and/or use of iterative reconstruction technique. FINDINGS: INTERNAL CEREBRAL ARTERIES: Focal ectasia of the right cavernous carotid artery measuring up to 8 millimeters in diameter possibly representing a small fusiform aneurysm. ANTERIOR CEREBRAL ARTERIES: Unremarkable. A1 and A2 segments are widely patent. Smaller distal branches unremarkable, as visualized. MIDDLE CEREBRAL ARTERIES: Unremarkable. M1 and M2 segments are widely patent. Perisylvian branches grossly symmetric. POSTERIOR CIRCULATION: Basilar Artery: Unremarkable. Distal Vertebral Arteries: Unremarkable. Posterior Cerebral Arteries: Unremarkable. Posterior Inferior Cerebellar Arteries: Unremarkable. ANEURYSM/ VASCULAR MALFORMATIONS: None. OTHER FINDINGS: Moderate cortical volume loss and sequela of chronic microvascular ischemic disease. nasal sinus disease. . 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
[2018-07-20] MEDS: Insulin Regular 100 units/ml SC SCH ×3 (08:45→17:00)
[2018-07-20] MEDS: Enoxaparin 40 mg Syringe SC SCH (10:17)
--- NOTE | 2018-07-20 11:04 | CP.PCM.DIS ---
<Sultan Stanislav - Last Filed: 07/20/18 15:54> Provider - Provider Date of Admission: 07/18/18 17:44 Attending physician: Eileen Matute DO Time Spent in preparation of Discharge (in minutes): 25 Diagnosis - Discharge Diagnosis (1) Stroke Status: Acute Priority: High (2) Hypercholesteremia Status: Chronic (3) CAD (coronary artery disease) of artery bypass graft Status: Chronic (4) HTN (hypertension) Status: Chronic (5) T2DM (type 2 diabetes mellitus) Status: Chronic Hospital Course - Lab Results Lab Results: Micro Results 07/18/18 20:00 Urine,Clean Catch Urine Culture - Preliminary Gram Negative Raudel Most Recent Lab Values WBC 10.4 K/uL (4.8-10.8) 07/18/18 16:20 RBC 4.11 Mil/uL (3.80-5.20) 07/18/18 16:20 Hgb 12.9 g/dL (12.0-16.0) 07/18/18 16:20 Hct 38.4 % (34.0-47.0) 07/18/18 16:20 MCV 93.5 fl (81.0-99.0) 07/18/18 16:20 MCH 31.3 pg (27.0-31.0) H 07/18/18 16:20 MCHC 33.5 g/dL (33.0-37.0) 07/18/18 16:20 RDW 13.5 % (11.5-14.5) 07/18/18 16:20 Plt Count 196 K/uL (130-400) 07/18/18 16:20 MPV 9.2 fl (7.2-11.7) 07/18/18 16:20 Neut % (Auto) 53.8 % (50.0-75.0) 07/18/18 16:20 Lymph % (Auto) 30.7 % (20.0-40.0) 07/18/18 16:20 Hunt % (Auto) 8.3 % (0.0-10.0) 07/18/18 16:20 Eos % (Auto) 7.0 % (0.0-4.0) H 07/18/18 16:20 Baso % (Auto) 0.2 % (0.0-2.0) 07/18/18 16:20 Neut # (Auto) 5.6 K/uL (1.8-7.0) 07/18/18 16:20 Lymph # (Auto) 3.2 K/uL (1.0-4.3) 07/18/18 16:20 Hunt # (Auto) 0.9 K/uL (0.0-0.8) H 07/18/18 16:20 Eos # (Auto) 0.7 K/uL (0.0-0.7) 07/18/18 16:20 Baso # (Auto) 0.0 K/uL (0.0-0.2) 07/18/18 16:20 Sodium 138 mmol/l (132-148) 07/20/18 05:10 Potassium 4.5 MMOL/L (3.6-5.0) 07/20/18 05:10 Chloride 106 mmol/L (98-107) 07/20/18 05:10 Carbon Dioxide 22 mmol/L (22-30) 07/20/18 05:10 Anion Gap 15 (10-20) 07/20/18 05:10 BUN 17 mg/dl (7-17) 07/20/18 05:10 Creatinine 0.6 mg/dl (0.7-1.2) L 07/20/18 05:10 Est GFR ( Amer) > 60 07/20/18 05:10 Est GFR (Non-Af Amer) > 60 07/20/18 05:10 POC Glucose (mg/dL) 172 mg/dL (65-110) H 07/20/18 05:23 Random Glucose 174 mg/dL (65-105) H 07/20/18 05:10 Hemoglobin A1c 7.8 % (4.2-6.5) H 07/19/18 05:42 Calcium 9.2 mg/dL (8.4-10.2) 07/20/18 05:10 Total Bilirubin 0.5 mg/dl (0.2-1.3) 07/19/18 05:00 AST 26 U/L (14-36) 07/19/18 05:00 ALT 30 U/L (9-52) 07/19/18 05:00 Alkaline Phosphatase 45 U/L (38-126) 07/19/18 05:00 Troponin I < 0.0120 ng/mL (0.00-0.120) 07/19/18 05:00 Total Protein 6.8 G/DL (6.3-8.2) 07/19/18 05:00 Albumin 3.7 g/dL (3.5-5.0) 07/19/18 05:00 Globulin 3.1 gm/dL (2.2-3.9) 07/19/18 05:00 Albumin/Globulin Ratio 1.2 (1.0-2.1) 07/19/18 05:00 Triglycerides 212 mg/DL (0-149) H 07/18/18 19:30 Cholesterol 151 mg/dL (0-199) 07/18/18 19:30 LDL Cholesterol Direct 74 mg/dL (0-129) 07/18/18 19:30 HDL Cholesterol 37 MG/DL (30-70) 07/18/18 19:30 Total T3 1.17 nmol/L (1.49-2.60) L 07/19/18 05:42 TSH 3rd Generation 3.70 mIU/ML (0.46-4.68) 07/19/18 05:42 Urine Color Straw (YELLOW) 07/18/18 20:00 Urine Appearance Clear (CLEAR) 07/18/18 20:00 Urine pH 6.0 (5.0-8.0) 07/18/18 20:00 Ur Specific [place] 1.005 (1.003-1.030) 07/18/18 20:00 Urine Protein Negative mg/dL (NEGATIVE) 07/18/18 20:00 Urine Glucose (UA) Neg mg/dL (Normal) 07/18/18 20:00 Urine Ketones Negative mg/dL (NEGATIVE) 07/18/18 20:00 Urine Blood Negative (NEGATIVE) 07/18/18 20:00 Urine Nitrate Negative (NEGATIVE) 07/18/18 20:00 Urine Bilirubin Negative (NEGATIVE) 07/18/18 20:00 Urine Urobilinogen 0.2 mg/dL (0.2-1.0) 07/18/18 20:00 Ur Leukocyte Esterase Neg Felicia/uL (Negative) 07/18/18 20:00 - Hospital Course Hospital Course: 83 YO Female with PMHx of NIDDM, HTN, HLD, CAD (s/p CABG) and baseline dementia is admitted for TIA, r/o stroke. MRI was sig for right posterior temporoparietal area suggestive of acute ischemia. Patient is improving and per daughter mental status is back to baseline. Pt was seen by PT/OT, neurology was consulted pt given plavix, started on daily plavix, Atorvastatin increased to 40mg and ASA 81mg daily. 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 Neuro surgeon Dr. Alonzo was consulted and states no intervention is needed as this is an incidental finding. Pt was advised to f/u with Dr. Laura within 1 week. Will d/c pt home with outpatient PT x 6 weeks. Discharge Exam - Head Exam Head Exam: NORMAL INSPECTION - Eye Exam Eye Exam: Normal appearance - ENT Exam ENT Exam: Mucous Membranes Moist - Respiratory Exam Respiratory Exam: Clear to PA & Lateral, NORMAL BREATHING PATTERN - Cardiovascular Exam Cardiovascular Exam: REGULAR RHYTHM, +S1, +S2 - GI/Abdominal Exam GI & Abdominal Exam: Normal Bowel Sounds, Soft. absent: Tenderness - Neurological Exam Neurological exam: Alert, Oriented x3 Additional comments: RUE weakness improved but still persists. - Psychiatric Exam Psychiatric exam: Normal Affect, Normal Mood Discharge Plan - Discharge Medications Prescriptions: Aspirin [Aspirin Chewable] 81 mg PO DAILY #30 ctb Atorvastatin [Lipitor] 40 mg PO HS #30 tab Clopidogrel [Plavix] 75 mg PO DAILY #30 tab - Follow Up Plan Condition: FAIR Disposition: HOME/ ROUTINE Instructions: Stroke (DC) Additional Instructions: please follow up with MD within [address] Degroot within 1 week Referrals: Saroj Degroot MD [Medical Doctor] - <Eileen Matute - Last Filed: 07/20/18 16:32> Provider - Provider Date of Admission: 07/18/18 17:44 Attending physician: Eileen Matute DO Hospital Course - Lab Results Lab Results: Micro Results 07/18/18 20:00 Urine,Clean Catch Urine Culture - Preliminary Gram Negative Raudel Most Recent Lab Values WBC 10.4 K/uL (4.8-10.8) 07/18/18 16:20 RBC 4.11 Mil/uL (3.80-5.20) 07/18/18 16:20 Hgb 12.9 g/dL (12.0-16.0) 07/18/18 16:20 Hct 38.4 % (34.0-47.0) 07/18/18 16:20 MCV 93.5 fl (81.0-99.0) 07/18/18 16:20 MCH 31.3 pg (27.0-31.0) H 07/18/18 16:20 MCHC 33.5 g/dL (33.0-37.0) 07/18/18 16:20 RDW 13.5 % (11.5-14.5) 07/18/18 16:20 Plt Count 196 K/uL (130-400) 07/18/18 16:20 MPV 9.2 fl (7.2-11.7) 07/18/18 16:20 Neut % (Auto) 53.8 % (50.0-75.0) 07/18/18 16:20 Lymph % (Auto) 30.7 % (20.0-40.0) 07/18/18 16:20 Hunt % (Auto) 8.3 % (0.0-10.0) 07/18/18 16:20 Eos % (Auto) 7.0 % (0.0-4.0) H 07/18/18 16:20 Baso % (Auto) 0.2 % (0.0-2.0) 07/18/18 16:20 Neut # (Auto) 5.6 K/uL (1.8-7.0) 07/18/18 16:20 Lymph # (Auto) 3.2 K/uL (1.0-4.3) 07/18/18 16:20 Hunt # (Auto) 0.9 K/uL (0.0-0.8) H 07/18/18 16:20 Eos # (Auto) 0.7 K/uL (0.0-0.7) 07/18/18 16:20 Baso # (Auto) 0.0 K/uL (0.0-0.2) 07/18/18 16:20 Sodium 138 mmol/l (132-148) 07/20/18 05:10 Potassium 4.5 MMOL/L (3.6-5.0) 07/20/18 05:10 Chloride 106 mmol/L (98-107) 07/20/18 05:10 Carbon Dioxide 22 mmol/L (22-30) 07/20/18 05:10 Anion Gap 15 (10-20) 07/20/18 05:10 BUN 17 mg/dl (7-17) 07/20/18 05:10 Creatinine 0.6 mg/dl (0.7-1.2) L 07/20/18 05:10 Est GFR ( Amer) > 60 07/20/18 05:10 Est GFR (Non-Af Amer) > 60 07/20/18 05:10 POC Glucose (mg/dL) 359 mg/dL (65-110) H 07/20/18 11:59 Random Glucose 174 mg/dL (65-105) H 07/20/18 05:10 Hemoglobin A1c 7.8 % (4.2-6.5) H 07/19/18 05:42 Calcium 9.2 mg/dL (8.4-10.2) 07/20/18 05:10 Total Bilirubin 0.5 mg/dl (0.2-1.3) 07/19/18 05:00 AST 26 U/L (14-36) 07/19/18 05:00 ALT 30 U/L (9-52) 07/19/18 05:00 Alkaline Phosphatase 45 U/L (38-126) 07/19/18 05:00 Troponin I < 0.0120 ng/mL (0.00-0.120) 07/19/18 05:00 Total Protein 6.8 G/DL (6.3-8.2) 07/19/18 05:00 Albumin 3.7 g/dL (3.5-5.0) 07/19/18 05:00 Globulin 3.1 gm/dL (2.2-3.9) 07/19/18 05:00 Albumin/Globulin Ratio 1.2 (1.0-2.1) 07/19/18 05:00 Triglycerides 212 mg/DL (0-149) H 07/18/18 19:30 Cholesterol 151 mg/dL (0-199) 07/18/18 19:30 LDL Cholesterol Direct 74 mg/dL (0-129) 07/18/18 19:30 HDL Cholesterol 37 MG/DL (30-70) 07/18/18 19:30 Total T3 1.17 nmol/L (1.49-2.60) L 07/19/18 05:42 TSH 3rd Generation 3.70 mIU/ML (0.46-4.68) 07/19/18 05:42 Urine Color Straw (YELLOW) 07/18/18 20:00 Urine Appearance Clear (CLEAR) 07/18/18 20:00 Urine pH 6.0 (5.0-8.0) 07/18/18 20:00 Ur Specific [place] 1.005 (1.003-1.030) 07/18/18 20:00 Urine Protein Negative mg/dL (NEGATIVE) 07/18/18 20:00 Urine Glucose (UA) Neg mg/dL (Normal) 07/18/18 20:00 Urine Ketones Negative mg/dL (NEGATIVE) 07/18/18 20:00 Urine Blood Negative (NEGATIVE) 07/18/18 20:00 Urine Nitrate Negative (NEGATIVE) 07/18/18 20:00 Urine Bilirubin Negative (NEGATIVE) 07/18/18 20:00 Urine Urobilinogen 0.2 mg/dL (0.2-1.0) 07/18/18 20:00 Ur Leukocyte Esterase Neg Felicia/uL (Negative) 07/18/18 20:00 Attending/Attestation - Attestation I have personally seen and examined this patient.: Yes I have fully participated in the care of the patient.: Yes I have reviewed all pertinent clinical information, including history, physical exam and plan: Yes Notes (Text): 07/20/18 16:32 Seen, examined, discussed with resident Dr. [place]. Agree with findings and plan as above.
[2018-07-20 16:16] VITALS: BP 144/76; PULSE 76; RESP 20; TEMP 98.2; O2SAT 98
--- NOTE | 2018-07-22 15:19 | US ---
Date of service: 07/20/2018 PROCEDURE: Duplex ultrasound of the carotid and vertebral arteries. HISTORY: TIA/Stroke COMPARISON: None available. TECHNIQUE: Grayscale and duplex Doppler evaluation of the cervical carotid and vertebral arteries were performed. The common carotid, carotid bifurcations and cervical ICA and proximal ECA were evaluated. The vertebral arteries were evaluated for gross patency and direction. FINDINGS: RIGHT CAROTID ARTERIES: Common Carotid Artery: Mild atherosclerotic plaque. Maximal flow velocity of 77 cm/s. Carotid Bifurcation: Mild right bulb plaque Internal Carotid Artery:Mild plaque Maximal flow velocity of 56 cm/s. External Carotid Artery (proximal branches): Mild plaque. Maximal flow velocity of seventy-two cm/s. ICA/CCA Ratio: Within normal limits LEFT CAROTID ARTERIES: Common Carotid Artery: [id number] plaque. Maximal flow velocity of 86 cm/s. Carotid Bifurcation: Zhyn-[id number] plaque Internal Carotid Artery:Edny-zs-kvrnvzqi plaque. Maximal flow velocity of 78 cm/s. External Carotid Artery (proximal branches): Normal. Maximal flow velocity of 63 cm/s. ICA/CCA Ratio: Within normal limits. VERTEBRAL ARTERIES: Right Vertebral Artery: Patent. Antegrade flow. Left Vertebral Artery: Patent. Antegrade flow. OTHER FINDINGS: Velocity measurements correspond with a 1-15 percent luminal narrowing, however 2D imaging of the plaque burden may represent slightly greater narrowing. IMPRESSION: No peak systolic velocity elevation to suggest carotid bifurcation stenosis. Mild to moderate atherosclerotic bulb and ICA plaque, greater on the left.
== END 2018-07-20 17:48 | disposition home or self-care (01) ==
LOC: H.ER 15:25 → H.ERHOLD 17:44 → H.TEL 21:44
PROVIDERS: ADMIT Student in an Organized Health Care Education/Training Program; ATTEND Student in an Organized Health Care Education/Training Program
DX: I63.9 Cerebral infarction, unspecified (principal); J32.0 Chronic maxillary sinusitis; K21.9 Gastro-esophageal reflux disease without esophagitis; M81.0 Age-related osteoporosis without current pathological fracture; R29.702 NIHSS score 2; W19.XXXA Unspecified fall, initial encounter; Z79.02 Long term (current) use of antithrombotics/antiplatelets; Z79.82 Long term (current) use of aspirin; Z79.899 Other long term (current) drug therapy; Z79.84 Long term (current) use of oral hypoglycemic drugs; E03.9 Hypothyroidism, unspecified; E11.9 Type 2 diabetes mellitus without complications; E78.00 Pure hypercholesterolemia, unspecified; E78.5 Hyperlipidemia, unspecified; F03.90 Unspecified dementia, unspecified severity, without behavioral disturbance, psychotic disturbance, mood disturbance, and anxiety; G89.29 Other chronic pain; I10 Essential (primary) hypertension; I25.10 Atherosclerotic heart disease of native coronary artery without angina pectoris; G81.91 Hemiplegia, unspecified affecting right dominant side
CPT/HCPCS: 36415; 70450; 70496; 70498; 70551; 71045; 80048; 80053; 80061; 81003; 82948; 83036; 84443; 84480; 84484; 85025; 87086; 87181; 93005; 93306; 93880; 97116; 97161; 99284; G0378; G8978; G8979; G8980; J1650; Q9967

== ENCOUNTER 2018-08-18 00:33 | Emergency (ER) | payer MEDICARE ==
[2018-08-18 00:33] VITALS: BMI 23.2
--- NOTE | 2018-08-18 02:49 | ED PDOC ---
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 Patient states that prior to arrival while routinely checking her bp, she noticed it was elevated to 180 systolic and became anxious, calling EMS. Otherwise denies chest pain, headache, shortness of breath, and weakness / numbness. Pt reports drinking chamomile tea and taking Aspirin before leaving her house, and now upon arrival to ED feels fine. She offers no complaints at this time. PMD: Reggie Jasso Past Medical History Reviewed: Historical Data, Nursing Documentation, Vital Signs Vital Signs: Last Vital Signs Temp 98.4 F 08/18/18 00:37 Pulse 79 08/18/18 00:37 Resp 19 08/18/18 00:37 BP 155/88 H 08/18/18 00:37 Pulse Ox 97 08/18/18 00:37 - Medical History PMH: CAD, HTN, Hypercholesterolemia, Hypothyroidism, Osteoporosis - Surgical History Surgical History: CABG - Family History Family History: States: Unknown Family Hx - Social History Current smoker - smoking cessation education provided: No Alcohol: None Drugs: Denies - Home Medications Home Medications: Ambulatory Orders Medication Instructions Recorded Enalapril Maleate 10 mg PO DAILY 05/20/15 amLODIPine [Norvasc] 5 mg PO DAILY 05/20/15 Levothyroxine [Synthroid] 25 mcg PO DAILY 01/29/18 Sitagliptin Phos/Metformin HCl 1 tab PO BID 01/29/18 [Janumet 50-1,000 mg Tablet] Valsartan/Hydrochlorothiazide 1 tab PO DAILY 01/29/18 [Valsartan-Hctz 320-25 mg Tab] Ezetimibe [Zetia] 10 mg PO HS 07/18/18 Metoprolol Tartrate [Lopressor] 50 mg PO Q12 07/18/18 Aspirin [Aspirin Chewable] 81 mg PO DAILY #30 ctb 07/20/18 Atorvastatin [Lipitor] 40 mg PO HS #30 tab 07/20/18 Clopidogrel [Plavix] 75 mg PO DAILY #30 tab 07/20/18 - Allergies Allergies/Adverse Reactions: Allergies Allergy/AdvReac Type Severity Reaction Status Date / Time No Known Allergies Allergy Verified 08/18/18 00:41 Review of Systems ROS Statement: Except As Marked, All Systems Reviewed And Found Negative Constitutional: Positive for: Other (high blood pressure) Cardiovascular: Negative for: Chest Pain Respiratory: Negative for: Shortness of Breath Neurological: Negative for: Weakness, Numbness, Headache Psych: Positive for: Anxiety Physical Exam - Reviewed Nursing Documentation Reviewed: Yes Vital Signs Reviewed: Yes - Physical Exam Appears: Positive for: No Acute Distress (but anxious appearing) Head Exam: Positive for: ATRAUMATIC, NORMOCEPHALIC Skin: Positive for: Normal Color, Warm, Dry. Negative for: Rash Eye Exam: Positive for: Normal appearance, EOMI, PERRL ENT: Positive for: Normal ENT Inspection Neck: Positive for: Normal, Painless ROM, Supple Cardiovascular/Chest: Positive for: Regular Rate, Rhythm Respiratory: Positive for: Normal Breath Sounds. Negative for: Accessory Muscle Use, Respiratory Distress Gastrointestinal/Abdominal: Positive for: Normal Exam, Soft. Negative for: Tenderness Back: Positive for: Normal Inspection Extremity: Positive for: Normal ROM Neurologic/Psych: Positive for: Alert, Oriented (x3) - ECG O2 Sat by Pulse Oximetry: 97 (RA) Pulse Ox Interpretation: Normal Medical Decision Making Medical Decision Makin A/P: 83 year old female with hx of HTN and recent TIA presenting with resolved HTN -currently asymptomatic, feeling well with no complaints -bp normalizing -instructed to follow up with Dr. Jasso for medication reconciliation Scribe Attestation: Documented by Gay Hugo, acting as a scribe for Andrews Silverio MD. Provider Scribe Attestation: All medical record entries made by the Scribe were at my direction and personally dictated by me. I have reviewed the chart and agree that the record accurately reflects my personal performance of the history, physical exam, medical decision making, and the department course for this patient. I have also personally directed, reviewed, and agree with the discharge instructions and disposition. Disposition - Clinical Impression Clinical Impression: Hypertension - Disposition Referrals: Reggie Jasso MD [Staff Provider] - Disposition: Routine/Home Disposition Time: 02:00 Condition: STABLE Instructions: High Blood Pressure Emergencies Forms: [facility] (Amharic)
[2018-08-18 03:02] VITALS: BP 124/67; PULSE 72; RESP 16; TEMP 98.2; O2SAT 97
== END 2018-08-18 03:02 | disposition home or self-care (01) ==
LOC: H.ER 00:33
DX: I10 Essential (primary) hypertension (principal)